=== PATIENT | male | born 1960 | race African-American/Black ===

== ENCOUNTER 2016-09-21 10:27 | Outpatient (CLI) | payer MEDICARE, MEDICAID ==
--- NOTE | 2016-09-21 14:48 | Diagnostic Imaging Report ---
Indication: 55-year-old male outpatient with radiculopathy, worsening pain in neck, burning and weakness in hands Technique: Sagittal T1 FLAIR PROPELLER, sagittal T2 PROPELLER, sagittal STIR axial T2 PROPELLER, axial 3-D COSMIC ASPIR axial T1 fat-saturated images pre-and postcontrast, post contrast sagittal T1 FSE images of the cervical spine Comparison: None Findings: Bony alignment is normal. The disc spaces are preserved. Vertebral body heights are preserved. Vertebral body marrow signal is normal. There is moderate to severe spinal stenosis at C5-6. This is due to a combination of circumferential annular bulge, short pedicles, and to a slight degree ligamentous hypertrophy. The spinal canal is narrowed circumferentially, and no through spinal fluid is seen surrounding the cord at this level. There is high cord T2 signal at this level, suggesting significant myelomalacia. There is also moderate to severe narrowing of the bilateral neural foramina, due to facet and uncinate hypertrophy. No significant cord enhancement is demonstrated At C4-5, there is moderate neural foraminal stenosis. There is preservation of CSF signal around the cord, but the anterior aspect of the cord is slightly indented. Narrowing is due to combination of short pedicles and circumferential annular bulge. There is no significant myelomalacia at this level. There is moderate to severe bilateral neural frontal stenosis, due to facet and uncinate hypertrophy. At C2-3, no significant disc old or protrusion or spinal stenosis. There is mild bilateral neural frontal narrowing, due to facet and uncinate hypertrophy. At C3-4, there is mild spinal stenosis due to short pedicles. No significant disc bulge or protrusion. There is moderate to severe right, severe left neural foraminal stenosis due to facet and uncinate hypertrophy. At C6-7, there is mild circumferential annular bulge as well as a very small focus of central posterior disc protrusion. There is mild spinal stenosis, predominantly due to short pedicles with only minimal contribution by the disc abnormality. There is moderate bilateral neural frontal stenosis at this level, predominantly due to facet hypertrophy. At C7-T1, no significant disc bulge or protrusion, spinal stenosis, or neural foraminal stenosis. No significant contrast enhancement is evident. The included extraspinal soft tissues are unremarkable. Impression: Moderate to severe circumferential spinal stenosis at C5-6, due to a combination of circumferential narrowing of the spinal canal, short pedicles result in short AP dimension of the spinal canal, circumferential annular bulge, and ligamentous hypertrophy. This results in compression of the cord, with absence of stranding CSF signal. There is central high T2 signal within the cord at this level, likely indicative of either edema or myelomalacia. Less severe spinal stenosis at C4-5 with borderline cord impingement Multilevel significant neural foraminal stenosis as detailed on a level by level basis above No significant contrast enhancement is evident
--- NOTE | 2016-09-24 08:52 | Diagnostic Imaging Report ---
Indications: Left shoulder pain, history of 3 steroid injections into left shoulder joint with no relief Technique: Sagittal oblique and coronal oblique T1 weighted fast spin echo and T2-weighted fat-saturated fast spin-echo, sagittal oblique, coronal oblique and axial proton density weighted fat saturated fast spin echo sequences of the right shoulder were performed without IV or intra-articular gadolinium administration. Findings: Comparison: None Approximately 7 x 8 mm linear focus of fluid signal is present at the level of the junction of the supraspinatus and infraspinatus tendons at the footprint. Linear fluid signal extends from this lesion longitudinally through the fibers of the infraspinatus tendon at the musculotendinous junction. There is associated mild focal irregularity of the undersurface of the infraspinatus tendon. No associated tendon retraction or muscular atrophy. Teres minor, subscapularis muscles and tendons intact. Minimal fluid in subacromial/subdeltoid bursa. Degenerative changes in the acromioclavicular joint with mild inferior margin spurring results in focal impingement upon the supraspinatus at its musculotendinous junction. Subacromial space normal in width. Glenohumeral joint intact. Glenoid labrum intact without obvious signal abnormality. Lung and biceps tendon normally located within the bicipital groove, intact and normal in signal to its glenoid insertion site. No significant glenohumeral or biceps tendon sheath effusion. No subjacent marrow signal abnormality. IMPRESSION: Findings compatible with low-grade partial tear of the supraspinatus-infraspinatus tendon junction at the footprint with interstitial delamination extending along the infraspinatus tendon fibers. No evidence of associated tendon retraction, muscular atrophy, or rotator cuff insufficiency. 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
== END 2016-09-26 12:27 | disposition home or self-care (01) ==
LOC: MRI 10:27
DX: M54.12 Radiculopathy, cervical region (principal); M19.012 Primary osteoarthritis, left shoulder
CPT/HCPCS: 72156; 73221; A9585